=== PATIENT | female | born 1995 | race Caucasian/White ===

== ENCOUNTER → 2016-10-10 | Outpatient (CLI) | payer OTHER ==
--- NOTE | 2016-10-10 23:05 | MR ---
EXAMINATION TYPE: MR lumbar spine wo con DATE OF EXAM: 10/10/2016 1:21 PM COMPARISON: NONE HISTORY: LBP, muscle spasms, rt side TECHNIQUE: T1 and T2 axial and sagittal images of the lumbar spine are submitted. FINDINGS: There is no abnormal signal seen within the visualized spinal cord or paraspinal soft tissu es. At L1-2 there is no disc herniation or canal stenosis. No foraminal encroachment At L2-3 there is no disc herniation or canal stenosis. No foraminal encroachment At L3-4 there is no disc herniation or canal stenosis. No foraminal encroachment At L4-5 there is no disc herniation or canal stenosis. No foraminal encroachment At L5-S1 there is no disc herniation or canal stenosis. No foraminal encroachment IMPRESSION: 1. Normal MRI lumbar spine.
== END | disposition home or self-care (01) ==
LOC: RADMRIMAIN 11:44
PROVIDERS: ATTEND Physician Assistant
DX: M54.5 Low back pain (principal)
CPT/HCPCS: 72148

== ENCOUNTER → 2018-10-19 | Outpatient (CLI) | payer OTHER ==
--- NOTE | 2018-10-19 14:58 | CT ---
EXAMINATION TYPE: CT abdomen pelvis w con DATE OF EXAM: 10/19/2018 HISTORY: right flank pain CT DLP: 777.2mGycm Automated Exposure Control for Dose Reduction was Utilized. CONTRAST: CT scan of the abdomen and pelvis is performed with IV Contrast, patient injected with 100 mL of Isov ue 300. COMPARISON: 04/14/2015. FINDINGS: LUNG BASES: Unremarkable other than very minimal right basilar dependent subsegmental atelectasis LIVER/GB: Hepatic parenchyma is diffusely hypoattenuated in comparison to that of the spleen, most co mmonly seen in hepatic steatosis. This finding limits evaluation for hepatic masses. There appears to be geographic areas of subserosal focal fatty sparing there is also seen around the gallbladder osmany a No gross evidence of hepatic mass is seen. No intrahepatic biliary ductal dilatation. No cholelithi asis PANCREAS: No significant abnormality is seen. SPLEEN: No significant abnormality is seen. ADRENALS: No significant abnormality is seen. KIDNEYS: 1 to 2 mm nonobstructing right lower pole renal calculi are seen (2 in number). These appear unchanged from the prior 2014. Very punctate left nonobstructing midpole renal calculi are also susp ected. There is no evidence of hydronephrosis of either kidney. No urinary bladder calculi are seen. No ureteral dilatation nor uroepithelial thickening. Kidneys enhance and excrete symmetrically.. BOWEL: The appendix is air-filled and within normal limits of size. The terminal ileum demonstrates n o evidence of wall thickening. No dilated large or small bowel. Mild colonic fecal stasis. UTERUS/ADNEXA: There is an large size of the ovaries likely due to cystic change measuring 4.5 x 2.9 cm on the right and 3.9 x 2.7 cm on the left.. LYMPH NODES: No greater than 1cm abdominal or pelvic lymph nodes are appreciated. OSSEOUS STRUCTURES: No significant abnormality is seen. IMPRESSION: 1. At least moderate grade hepatic steatosis. 2. Bilateral punctate nonobstructing renal calculi. No hydronephrosis, no hydroureter, and no urinary bladder calculi are seen. 3. Enlarged bilateral ovaries are likely due to ovarian cystic change and could be further evaluated with pelvic ultrasound. 4. No evidence of acute appendicitis or terminal ileitis in this patient presents right upper quadran t abdominal pain.
== END | disposition home or self-care (01) ==
LOC: RADCTMAIN 12:07
PROVIDERS: ATTEND Physician Assistant
DX: N20.0 Calculus of kidney (principal); K76.0 Fatty (change of) liver, not elsewhere classified; N83.8 Other noninflammatory disorders of ovary, fallopian tube and broad ligament; Z87.42 Personal history of other diseases of the female genital tract
CPT/HCPCS: 74177; Q9967

== ENCOUNTER → 2019-12-04 | Outpatient (CLI) | payer OTHER ==
--- NOTE | 2019-12-04 17:24 | CT ---
EXAMINATION TYPE: CT lumbar spine wo con DATE OF EXAM: 12/04/2019 COMPARISON: CT 10/19/2018 HISTORY: Follow up L1 compression fracture. CT DLP: 392.7 mGycm Automated exposure control for dose reduction was used. An unenhanced CT of the lumbar spine was performed. Bone and soft tissue window settings are submitt ed as well as coronal and sagittal reconstructions. FINDINGS: There is been interval development of the superior endplate compression fracture with loss of height anteriorly of approximately 25%, retropulsed portion of the superior endplate is noted of approximate ly 6 to 7 mm into the spinal canal. Fracture fragment is also displaced anteriorly. Slight kyphosis. Punctate nonobstructive calculi present within the bilateral kidneys. L1-L2: Normal disc space height. No disc herniation protrusion or central stenosis. No facet joint arthropathy. No evidence for foraminal encroachment. L2-L3: Normal disc space height. No disc herniation protrusion or central stenosis. No facet joint arthropathy. No evidence for foraminal encroachment. L3-L4: Normal disc space height. No disc herniation protrusion or central stenosis. No facet joint arthropathy. No evidence for foraminal encroachment. L4-L5: Normal disc space height. No disc herniation protrusion or central stenosis. No facet joint arthropathy. No evidence for foraminal encroachment. L5-S1: Mild posterior disc bulge is suspected. Some loss of disc height. No significant spinal stenos is. IMPRESSION: No paraspinal masses are identified. Superior endplate fracture L1..
== END | disposition home or self-care (01) ==
LOC: RADCTMAIN 16:45
PROVIDERS: ATTEND Family Medicine
DX: S32.018A Other fracture of first lumbar vertebra, initial encounter for closed fracture (principal); G89.29 Other chronic pain
CPT/HCPCS: 72131

== ENCOUNTER → 2020-03-21 | Outpatient (CLI) | payer OTHER ==
--- NOTE | 2020-03-21 14:47 | US ---
EXAMINATION TYPE: US thyroid st tissue head/neck DATE OF EXAM: 03/21/2020 COMPARISON: NONE CLINICAL HISTORY: R94.6 abn thyroid study. Abnormal labs. GLAND SIZE: Right Lobe: 5.4 x 1.5 x 1.9 cm cm Overall Parenchyma: homogenous Left Lobe: 5.7 x 1.5 x 1.8 cm Overall Parenchyma: homogeneous Isthmus Thickness: .4 cm NODULES RIGHT: # of nodules measured on right: 0 LEFT: # of nodules measured on left: 0 ISTHMUS: # of nodules measured in the isthmus: 0 Bilateral neck scanned, no evidence of lymphadenopathy. Homogeneous normal-sized thyroid without discrete nodule. IMPRESSION: As above. Unremarkable study.
== END | disposition home or self-care (01) ==
LOC: RADUSWWP 13:51
PROVIDERS: ATTEND Family Medicine
DX: R94.6 Abnormal results of thyroid function studies (principal)
CPT/HCPCS: 76536

== ENCOUNTER → 2020-10-04 | Outpatient (CLI) | payer OTHER ==
--- NOTE | 2020-10-04 17:31 | XR ---
EXAMINATION TYPE: XR abdomen 2V DATE OF EXAM: 10/04/2020 3:08 PM CLINICAL HISTORY: Right abdominal pain for one and a half weeks. History of kidney stones. TECHNIQUE: Supine images of the abdomen and pelvis were obtained COMPARISON: 04/14/2015 abdominal radiograph. 10/19/2018 CT abdomen pelvis. FINDINGS: Nonspecific bowel gas pattern. There is no visceromegaly. No nephrolithiasis appreciated on current radiograph. The lung bases are clear. The osseous structures are intact. IMPRESSION: Nonspecific bowel gas pattern.
== END | disposition home or self-care (01) ==
LOC: RADXRMAIN 14:46
PROVIDERS: ATTEND Physician Assistant Medical
DX: R10.9 Unspecified abdominal pain (principal)
CPT/HCPCS: 74019

== ENCOUNTER → 2020-10-07 | Outpatient (CLI) | payer OTHER ==
--- NOTE | 2020-10-07 10:49 | CT ---
EXAMINATION TYPE: CT abdomen pelvis wo con DATE OF EXAM: 10/07/2020 COMPARISON: 10/19/2018 HISTORY: Right side flank pain H/O renal stones CT DLP: 843 mGycm Automated exposure control for dose reduction was used. TECHNIQUE: Helical acquisition of images was performed from the lung bases through the pelvis. FINDINGS: LUNG BASES: No significant abnormality is appreciated. LIVER/GB: Liver is reduced attenuation correlate for hepatic steatosis PANCREAS: No significant abnormality is seen. SPLEEN: No significant abnormality is seen. ADRENALS: No significant abnormality is seen. KIDNEYS: There are approximately 5 punctate 1 to 2 mm calculi bilaterally with no hydronephrosis ADENOPATHY: None visualized. OSSEOUS STRUCTURES: Severe L1 superior endplate compression fracture stable from previous lumbar CT of 12/04/2019 BOWEL: No significant abnormality is seen. OTHER: Aorta of normal caliber IMPRESSION: 1. Nonobstructing bilateral renal calculi. 2. Hepatic steatosis. 3. Stable severe end plate compression fracture L1.
== END | disposition home or self-care (01) ==
LOC: RADCTMAIN 10:14
PROVIDERS: ATTEND Family Medicine
DX: N20.0 Calculus of kidney (principal); K76.0 Fatty (change of) liver, not elsewhere classified; M48.56XA Collapsed vertebra, not elsewhere classified, lumbar region, initial encounter for fracture
CPT/HCPCS: 74176

== ENCOUNTER → 2022-12-08 | Outpatient (CLI) | payer OTHER ==
--- NOTE | 2022-12-08 08:28 | US ---
EXAMINATION TYPE: US abdomen limited DATE OF EXAM: 12/08/2022 COMPARISON: CT 10/07/20, US 2013 CLINICAL INDICATION: Female, 26 years old with history of R74.01 ELEVATION OF LEVELS OF LIVER TRANSAM INASE L; Elevation of levels of liver transaminase. Hx kidney stones. *Patient states she gets right -sided back pain. TECHNIQUE: Multiple sonographic images of the right upper quadrant are obtained. FINDINGS: EXAM MEASUREMENTS: Liver Length: 18.4 cm Gallbladder Wall: 0.20 cm CBD: Obscured Right Kidney: 11.5 x 6.0 x 4.2 cm OFFENDER EMPLOYMENT SPECIALIST NOTES: Limited due to great amount of overlying bowel gas. Pancreas: Tail was not well seen. Liver: Enlarged, very coarse, with increased echogenicity. Hypoechoic lesion seen near the right kidney within the right lobe of the liver: 3.6 x 4.0 x 3.1 cm . -Indistinct, hypoechoic area seen near pierre hepatis, possible focal fatty sparing measures 2.1 x 4.0 x 1.8 cm. Gallbladder: Hyperechoic area seen that appears to be attached to the gallbladder wall: 0.4 x 0.5 x 0.3 cm. Evidence for sonographic Best's sign: No CBD: Obscured Right Kidney: No hydronephrosis or masses seen IMPRESSION: 1. Hepatocellular disease with indeterminate hypoechoic lesions within the liver. Further evaluation with MRI or CT liver mass protocol is recommended. 2. Gallbladder polyp measuring up to 5 mm versus adherent gallstone
== END | disposition home or self-care (01) ==
LOC: RADUSWWP 07:30
PROVIDERS: ATTEND Family Medicine
DX: J02.9 Acute pharyngitis, unspecified (principal); K82.4 Cholesterolosis of gallbladder; B27.90 Infectious mononucleosis, unspecified without complication; K76.9 Liver disease, unspecified; R74.01 Elevation of levels of liver transaminase levels; R10.11 Right upper quadrant pain
CPT/HCPCS: 76705

== ENCOUNTER → 2023-01-06 | Outpatient (CLI) | payer OTHER ==
--- NOTE | 2023-01-07 09:16 | MR ---
EXAMINATION TYPE: MR abdomen wo/w con DATE OF EXAM: 01/06/2023 3:14 PM INDICATION: Patient age:Female; 27 years old; Reason for study: R74.01 R93.2; [facility]. COMPARISON: Abdominal ultrasound 12/08/2022 TECHNIQUE: Multiplanar multi-sequence imaging was performed of the abdomen without and with IV contr ast/Gadavist . The patient was given 7.5 ccs of Gadavist intravenously and dynamic imaging was perfo rmed. Post IV contrast subtraction images were also submitted for review. FINDINGS: LOWER CHEST: No gross irregularity. ABDOMEN Liver: Diffuse loss of signal on out of phase imaging consistent with hepatic steatosis. There is a s egment 6 T2 hyperintense lesion measuring 2.9 x 2.0 cm (series 701, image 29) corresponding to ultras ound finding. This demonstrates hypointense T1 signal. There is heterogenous diffuse enhancement on p ostcontrast imaging. There is arterial enhancement identified with similar continued enhancement on t he delayed phases (series 1001, image 246). Small region of focal fatty sparing in the pierre hepatis corresponding to ultrasound findings. Gallbladder and Bile ducts: No biliary duct dilatation. Nondependent 3 mm polyp corresponding to ultr asound (series 401, image 11). Pancreas: Unremarkable. Spleen: Unremarkable. Adrenal glands: Unremarkable. Kidneys: Unremarkable. Stomach and Bowel: Unremarkable as visualized. Peritoneum: No evidence of pneumoperitoneum, free fluid, or adenopathy. Vasculature: Unremarkable. No aortic aneurysm. Abdominal wall: Unremarkable. Musculoskeletal: The osseous structures appear intact. IMPRESSION: 1. Segment 6 enhancing hepatic lesion measuring 2.9 cm. This probably represents a hepatic adenoma. Clinical correlation is recommended. Consider follow-up MRI in 6 months to assess for stability. 2. Hepatic steatosis with focal fatty sparing in the pierre hepatis region. 3. 3 mm gallbladder polyp corresponding to ultrasound.
== END | disposition home or self-care (01) ==
LOC: RADMRIMAIN 14:12
PROVIDERS: ATTEND Family Medicine
DX: K76.0 Fatty (change of) liver, not elsewhere classified (principal); K82.4 Cholesterolosis of gallbladder; K76.89 Other specified diseases of liver; R74.01 Elevation of levels of liver transaminase levels
CPT/HCPCS: 74183; A9585

== ENCOUNTER 2024-03-18 20:56 | Emergency (ER) | payer OTHER ==
[2024-03-18 21:22] LABS: Appearance,Urine Clear (Clear); Bacteria,Urine Rare /hpf; Bilirubin,Urine Negative (Negative); Blood,Urine Trace (Negative); Color,Urine Light Yellow; Glucose,Urine (UA) Negative (Negative); Ketones,Urine 1+ (Negative); Leukocyte Esterase,Urine Small (Negative); Mucus,Urine Rare /hpf; Nitrite,Urine Negative (Negative); Protein,Urine Negative (Negative); RBC,Urine 12 /hpf (0-5); Specific Gravity,Urine 1.023 (1.001-1.035); Squamous Epithelial Cell,Urine 1 /hpf (0-4); Urobilinogen,Urine <2.0 mg/dL (<2.0); WBC,Urine 31 /hpf (0-5)
--- NOTE | 2024-03-18 21:51 | ED ---
Fever HPI - General Chief Complaint: Fever Stated Complaint: Fever, ABD Pain Time Seen by Provider: 03/18/24 21:13 Source: patient Mode of arrival: ambulatory Limitations: no limitations - History of Present Illness Initial Comments: This is a 28-year-old female with history of kidney stones and UTI presenting with fever, chills, headache, body aches, sweating x 2 days. Patient states symptoms started with left back pain and pain with urination x 2 weeks. Patient denies hematuria, increased urinary frequency, urinary urgency, bladder pressure. Patient denies chest pain, dyspnea, abdominal pain, N/V/D. MD Complaint: fever Onset/Timin -: days(s) - Related Data Previous Rx's Medication Instructions Recorded Hydrocodone/Acetaminophen [Sewell 1 each PO Q6HR PRN #30 tab 04/14/15 5-325] Sulfamethox-Tmp 800-160Mg [Bactrim 1 each PO Q12HR #20 tab 03/18/24 Ds] Allergies Allergy/AdvReac Type Severity Reaction Status Date / Time duloxetine [From Cymbalta] Allergy Unknown Verified 03/18/24 21:05 Review of Systems ROS Statement: Those systems with pertinent positive or pertinent negative responses have been documented in the HPI. ROS Other: All systems not noted in ROS Statement are negative. Past Medical History Past Medical History: No Reported History Additional Past Medical History / Comment(s): Kindey Stones, chronic back pain History of Any Multi-Drug Resistant Organisms: None Reported Past Surgical History: Adenoidectomy Past Psychological History: Anxiety, Depression Smoking Status: Never smoker Past Alcohol Use History: None Reported Past Drug Use History: None Reported General Exam Limitations: no limitations General appearance: alert, in no apparent distress Head exam: Present: atraumatic, normocephalic, normal inspection Eye exam: Present: normal appearance, PERRL, EOMI. Absent: scleral icterus, conjunctival injection, periorbital swelling ENT exam: Present: normal exam, mucous membranes moist Neck exam: Present: normal inspection. Absent: tenderness, meningismus, lymphadenopathy Respiratory exam: Present: normal lung sounds bilaterally. Absent: respiratory distress, wheezes, rales, rhonchi, stridor Cardiovascular Exam: Present: regular rate, normal rhythm, normal heart sounds. Absent: systolic murmur, diastolic murmur, rubs, gallop, clicks GI/Abdominal exam: Present: soft, normal bowel sounds. Absent: distended, tenderness, guarding, rebound, rigid Extremities exam: Present: normal inspection, full ROM, normal capillary refill. Absent: tenderness, pedal edema, joint swelling, calf tenderness Back exam: Present: CVA tenderness (L) Neurological exam: Present: alert, oriented X3, CN II-XII intact Psychiatric exam: Present: normal affect, normal mood Skin exam: Present: warm, dry, intact, normal color. Absent: rash Course Vital Signs 03/18/24 03/18/24 21:02 22:02 Temperature 99.5 F 99.2 F Pulse Rate 139 H 114 H Respiratory 20 19 Rate Blood Pressure 132/92 130/86 O2 Sat by Pulse 97 98 Oximetry Medical Decision Making - Medical Decision Making Was pt. sent in by a medical professional or institution (, PA, VENEER SUPERVISOR, urgent care, hospital, or fpc...) When possible be specific @ -No Did you speak to anyone other than the patient for history (EMS, parent, family, police, friend...)? What history was obtained from this source @ -No Did you review nursing and triage notes (agree or disagree)? Why? @ -I reviewed and agree with nursing and triage notes Were old charts reviewed (outside hosp., previous admission, EMS record, old EKG, old radiological studies, urgent care reports/EKG's, fpc records)? Report findings @ -No old charts were reviewed Differential Diagnosis (chest pain, altered mental status, abdominal pain women, abdominal pain men, vaginal bleeding, weakness, fever, dyspnea, syncope, headache, dizziness, GI bleed, back pain, seizure, CVA, palpatations, mental health, musculoskeletal)? @ -Differential Abdominal Pain Women: Appendicitis, Cholecystitis, diverticulosis, ischemic bowel, pancreatitis, hepatitis, UTI, gastroenteritis, AAA, incarcerated hernia, bowel obstruction, constipation, inflammatory bowel, hepatitis, peptic ulcer disease, splenic infarction, perforated viscus, vulvitis, ovarian torsion, PID, kidney stone, placenta abruption, this is not meant to be an all-inclusive list EKG interpreted by me (3pts min.). @ -Not done X-rays interpreted by me (1pt min.). @ -None done CT interpreted by me (1pt min.). @ -None done U/S interpreted by me (1pt. min.). @ -None done What testing was considered but not performed or refused? (CT, X-rays, U/S, labs)? Why? @ -None What meds were considered but not given or refused? Why? @ -None Did you discuss the management of the patient with other professionals (professionals i.e. Dr., PA, VENEER SUPERVISOR, lab, RT, psych nurse, social work administrator, guest relations agent, teacher, national insurance officer, classification case manager)? Give summary @ -No Was smoking cessation discussed for >3mins.? @ -No Was critical care preformed (if so, how long)? @ -No Were there social determinants of health that impacted care today? How? (Homelessness, low income, unemployed, alcoholism, drug addiction, transportation, low edu. Level, literacy, decrease access to med. care, usp, rehab)? @ -No Was there de-escalation of care discussed even if they declined (Discuss DNR or withdrawal of care, Hospice)? DNR status @ -No What co-morbidities impacted this encounter? (DM, HTN, Smoking, COPD, CAD, Cancer, CVA, ARF, Chemo, Hep., AIDS, mental health diagnosis, sleep apnea, morbid obesity)? @ -None Was patient admitted / discharged? Hospital course, mention meds given and route, prescriptions, significant lab abnormalities, going to OR and other pertinent info. @ -Discharged. UA shows UTI. CVA tenderness indicates potential pyelonephritis. Patient given 1 g Rocephin IM and Bactrim DS p.o. x 10 days sent to pharmacy. Advised increase water and cranberry juice intake Undiagnosed new problem with uncertain prognosis? @ -No Drug Therapy requiring intensive monitoring for toxicity (Heparin, Nitro, Insulin, Cardizem)? @ -No Were any procedures done? @ -No Diagnosis/symptom? @ -UTI with pyelonephritis Acute, or Chronic, or Acute on Chronic? @ -Acute Uncomplicated (without systemic symptoms) or Complicated (systemic symptoms)? @ -Complicated with fever and chills Side effects of treatment? @ -No Exacerbation, Progression, or Severe Exacerbation? @ -No Poses a threat to life or bodily function? How? (Chest pain, [place], [place], pneumonia, PE, COPD, DKA, ARF, appy, cholecystitis, CVA, Diverticulitis, Homicidal, Suicidal, threat to staff... and all critical care pts) @ -No - Lab Data Lab Results 03/18/24 03/18/24 Range/Units 21:05 21:05 Urine Color Light Yellow Urine Appearance Clear (Clear) Urine pH 6.0 (5.0-8.0) Ur Specific Thor 1.023 (1.001-1.035) Urine Protein Negative (Negative) Urine Glucose (UA) Negative (Negative) Urine Ketones 1+ H (Negative) Urine Blood Trace H (Negative) Urine Nitrite Negative (Negative) Urine Bilirubin Negative (Negative) Urine Urobilinogen <2.0 (<2.0) mg/dL Ur Leukocyte Esterase Small H (Negative) Urine RBC 12 H (0-5) /hpf Urine WBC 31 H (0-5) /hpf Ur Squamous Epith Cells 1 (0-4) /hpf Urine Bacteria Rare H (None) /hpf Urine Mucus Rare H (None) /hpf Urine HCG, Qual Not Detected (Not Detectd) Disposition Clinical Impression: Pyelonephritis, UTI (urinary tract infection) Disposition: HOME SELF-CARE Condition: Good Instructions (If sedation given, give patient instructions): Urinary Tract Infection in Women (ED) Prescriptions: Sulfamethox-Tmp 800-160Mg [Bactrim Ds] 1 each PO Q12HR #20 tab Is patient prescribed a controlled substance at d/c from ED?: No Referrals: Shivam Vásquez DO [Primary Care Provider] - 1-2 days Time of Disposition: 21:30
[2024-03-18] MEDS: cefTRIAXone 1,000 MG VIAL (IM USE) IM STA (21:59)
[2024-03-18 22:04] VITALS: BP 130/86; PULSE 114; RESP 19; TEMP 99.2
== END 2024-03-18 22:04 | disposition home or self-care (01) ==
LOC: EC 20:56
CPT/HCPCS: 81001; 81025; 96372; 99283